=== PATIENT | female | born 1965 | race Caucasian/White ===

== ENCOUNTER 2016-07-07 14:37 | Emergency (ER) | payer BC ==
[~2016-07-07] VITALS: Ht 165.1 cm; Wt 59.0 kg
[2016-07-07] MEDS ORDERED: MELOXICAM15 MG PO (14:45)
[2016-07-07] MEDS ORDERED: CYCLOBENZAPRINE10 MG PO (17:11)
[2016-07-07] MEDS ORDERED: PERCOCET 325 MG1 TA2 PO (17:11)
== END 2016-07-07 17:24 | disposition home or self-care (01) ==
LOC: ED 14:37
DX: S70.01XA Contusion of right hip, initial encounter (principal); Z79.899 Other long term (current) drug therapy; Z88.5 Allergy status to narcotic agent; W55.12XA Struck by horse, initial encounter; Y93.89 Activity, other specified; Y92.89 Other specified places as the place of occurrence of the external cause; Y99.9 Unspecified external cause status

== ENCOUNTER → 2021-01-20 | Outpatient (CLI) | payer OTHER ==
[~2021-01-20] MED LIST: CYCLOBENZAPRINE10 MG PO; MELOXICAM15 MG PO; PERCOCET 325 MG1 TA2 PO
== END | disposition home or self-care (01) ==
LOC: RAD 16:19
PROVIDERS: ATTEND Preventive Medicine Occupational Medicine
DX: M50.30 Other cervical disc degeneration, unspecified cervical region (principal)

== ENCOUNTER 2022-02-11 12:31 | Emergency (ER) | payer OTHER ==
[~2022-02-11] VITALS: Ht 157.4 cm; Wt 65.8 kg
[2022-02-11] MEDS ORDERED: AMOX-CLAV 875-1 EACH PO (18:23)
== END 2022-02-11 18:40 | disposition home or self-care (01) ==
LOC: ED 12:31
DX: S61.452A Open bite of left hand, initial encounter (principal); Z88.8 Allergy status to other drugs, medicaments and biological substances; Z79.899 Other long term (current) drug therapy; W54.0XXA Bitten by dog, initial encounter; Y93.89 Activity, other specified; Y92.89 Other specified places as the place of occurrence of the external cause; Y99.8 Other external cause status

== ENCOUNTER 2023-09-15 09:51 | Emergency (ER) | payer OTHER ==
[~2023-09-15] VITALS: Ht 162.5 cm; Wt 65.8 kg
[~2023-09-15 09:51] MED LIST changes: +AMOX-CLAV 875-1 EACH PO
[2023-09-15] MEDS ORDERED: HYDROCODONE-AC1 EAC1 PO (12:49)
== END 2023-09-15 13:08 | disposition home or self-care (01) ==
LOC: ED 09:51
DX: S92.425A Nondisplaced fracture of distal phalanx of left great toe, initial encounter for closed fracture (principal); M25.562 Pain in left knee; R51.9 Headache, unspecified; Z88.8 Allergy status to other drugs, medicaments and biological substances; V80.010A Animal-rider injured by fall from or being thrown from horse in noncollision accident, initial encounter; Y93.89 Activity, other specified; Y92.89 Other specified places as the place of occurrence of the external cause; Y99.8 Other external cause status